=== PATIENT | female | born 1985 | race Caucasian/White ===

== ENCOUNTER 2018-05-18 11:45 | Inpatient (IN) | payer OTHER ==
[~2018-05-18 11:45] MED LIST: CITRIC ACID/SODIUM CITRATE 30 ML UNIT-DOSE CUP PO ONE; ELECTROLYTE-148 SOLN 1,000 ML IV SCH
[2018-05-18] MEDS ORDERED: ELECTROLYTE-148 SOLN 1,000 ML IV SCH (12:15)
[2018-05-18 12:42] VITALS: BMI 36.3
[2018-05-18 13:22] LABS: BASO % 0.3 % (0-2.0); EOS % 1.3 % (0-4.5); HEMATOCRIT 37.5 % (32.4-45.2); HEMOGLOBIN 12.4 GM/dL (10.7-15.3); LYMPH % 20.7 % (8-40); MCH 28.6 pg (25.7-33.7); MCHC 33.1 g/dl (32.0-36.0); MEAN CELL VOLUME 86.5 fl (80-96); MEAN PLT VOLUME 9.1 fl (7.5-11.1); MONO % 6.1 % (3.8-10.2); NEUT % 71.6 % (42.8-82.8); PLATELET COUNT 209 K/MM3 (134-434); RBC 4.34 M/mm3 (3.60-5.2); WHITE BLOOD COUNT 7.5 K/mm3 (4.0-10.0)
[2018-05-18 13:36] LABS: INR 0.92 (0.82-1.09); PROTHROMBIN TIME (PATIENT) 10.4 SEC (9.7-13.0)
[2018-05-18 13:38] LABS: ACTIVATED PTT 28.1 SECONDS (25.2-36.5)
[2018-05-18 13:43] LABS: ANION GAP 11 (8-16); BLOOD UREA NITROGEN 9 mg/dL (7-18); CALCIUM 8.3 mg/dL (8.5-10.1); CHLORIDE 108 mmol/L (98-107); CO2 22 mmol/L (21-32); CREATININE 0.5 mg/dL (0.55-1.02); GLUCOSE,RANDOM 87 mg/dL (74-106); POTASSIUM 4.3 mmol/L (3.5-5.1); SODIUM 141 mmol/L (136-145)
--- NOTE | 2018-05-18 15:16 | HP ---
Past Medical History - Primary Care Physician PCP:: Osvaldo Chavez - Admission Chief Complaint: 40.3 weeks, previous c/s , oligo , request of repeat c/s History of Present Illness: 32 yo f , 40.3 weeks by sono with hx of oligo . AFI3.6 , previous c/s for repeat c/s, cx clp vx -3 mi, fhr cat 1 History Source: Patient Limitations to Obtaining History: No Limitations - Past Medical History ...: 4 ...Para: 2 ...Term: 2 ...: 0 ...Spon : 1 ...Induced : 0 ...Multiple Gestation: 0 ...EDC by Sono: 05/15/18 - Past Surgical History Past Surgical History: Yes: Cholecystectomy, Hx Myomectomy: No Hx Transabdominal Cerclage: No - Smoking History Smoking history: Never smoked Have you smoked in the past 12 months: No Aproximately how many cigarettes per day: 0 - Alcohol/Substance Use Hx Alcohol Use: No - Social History History of Recent Travel: No Home Medications - Allergies Allergies/Adverse Reactions: Allergies Allergy/AdvReac Type Severity Reaction Status Date / Time No Known Allergies Allergy Verified 05/18/18 13:12 - Home Medications Home Medications: Ambulatory Orders Ferrous Sulfate [Feosol] 325 mg PO DAILY 05/18/18 Vitamins (Sjr) - 1 tab PO DAILY 05/18/18 Review of Systems - Review of Systems Constitutional: reports: No Symptoms Eyes: reports: No Symptoms HENT: reports: No Symptoms Neck: reports: No Symptoms Cardiovascular: reports: No Symptoms Respiratory: reports: No Symptoms Gastrointestinal: reports: No Symptoms Genitourinary: reports: No Symptoms Breasts: reports: No Symptoms Reported Musculoskeletal: reports: No Symptoms Integumentary: reports: No Symptoms Neurological: reports: No Symptoms Endocrine: reports: No Symptoms Hematology/Lymphatic: reports: No Symptoms Psychiatric: reports: No Symptoms Physical Exam - Maternity Vital Signs: Vital Signs Temperature 98.1 F 05/18/18 14:00 Pulse Rate 63 05/18/18 14:00 Respiratory Rate 20 05/18/18 14:00 Blood Pressure 131/63 05/18/18 14:00 O2 Sat by Pulse Oximetry (%) Constitutional: Yes: Well Nourished, No Distress, Calm Eyes: Yes: WNL, Conjunctiva Clear, EOM Intact HENT: Yes: WNL, Atraumatic, Normocephalic Neck: Yes: WNL, Supple, Trachea Midline Cardiovascular: Yes: WNL, Regular Rate and Rhythm Breast(s): Yes: WNL - Abdominal Exam/OB Number of Fetuses: Single Presentation: Vertex Intensity: Unaware Monitor Mode: External Heart Rate Location: [facility] Category: I Accelerations: Uniform Decelerations: None - Vaginal Exam/OB Amniotic Membrane Status: Intact Presentation: Vertex/Position Station: -3 - Physical Exam Musculoskeletal: Yes: WNL Extremities: Yes: WNL Edema: Yes Edema: LLE: Trace, RLE: Trace Deep Tendon Reflex Grade: Normal +2 - Labs Lab Results: CBC, BMP 05/18/18 12:20 05/18/18 12:20 Hemorrhage Risk Assessment - Risk Factors Medium Risk Factors: Yes: Prior , uterine surgery,or multiple laparotomies Risk Score: 1 Risk Level: Medium Risk Problem List - Problems (1) Post term over 40 weeks Code(s): O48.0 - POST-TERM (2) Previous section complicating , antepartum condition or complication Code(s): O34.219 - MATERNAL CARE FOR UNSP TYPE SCAR FROM PREVIOUS DEL (3) Oligohydramnios antepartum Code(s): O41.00X0 - OLIGOHYDRAMNIOS, UNSP TRIMESTER, NOT APPLICABLE OR UNSP Qualifiers: Fetus number: single or unspecified fetus Qualified Code(s): O41.00X0 - Oligohydramnios, unspecified trimester, not applicable or unspecified Assessment/Plan admit for repeat c/s, rba discussed
[2018-05-18] MEDS ORDERED: METOCLOPRAMIDE HCL INJECTION 10 MG/2 ML VIAL IVPUSH ONE (16:44)
[2018-05-18] MEDS ORDERED: METOCLOPRAMIDE HCL INJECTION 10 MG/2 ML VIAL ONE (18:18)
[2018-05-18] MEDS ORDERED: diphenhydrAMINE HCL 25 MG CAPSULE (FP) PO PRN (19:20)
[2018-05-18] MEDS ORDERED: IBUPROFEN 800 MG/8 ML IJ IVPB PRN (19:20)
[2018-05-18] MEDS ORDERED: WITCH HAZEL 50% (TUCKS) 40 PAD/JAR PAD TP PRN (19:20)
[2018-05-18] MEDS ORDERED: METHYLERGONOVINE MALEATE 0.2 MG/1 ML AMP IM PRN (19:20)
[2018-05-18] MEDS ORDERED: oxyCODONE HCL 5 MG TABLET PO PRN ×2 (19:20)
[2018-05-18] MEDS ORDERED: BENZOCAINE 28 GM HEMORRHOIDAL OINTMENT PR PRN (19:20)
[2018-05-18] MEDS ORDERED: BENZOCAINE 20% 57 GM BOTTLE TP PRN (19:20)
[2018-05-18] MEDS ORDERED: morphine SULFATE/Preservative Free 0.5 MG/ML (1cc Syringe) ONE (19:26)
[2018-05-18] MEDS ORDERED: PHENYLEPHRINE HCL 10 MG/1 ML SINGLE DOSE VIAL ONE (19:28)
[2018-05-18] MEDS ORDERED: OXYTOCIN 20 UNITS in 0.9% NS 20 UNIT/1,000 ML INFUS.BAG IV SCH (19:30)
[2018-05-18] MEDS ORDERED: DEXTROSE 5%-LACTATED RINGERS 1,000 ML IV SCH (19:30)
[2018-05-18] MEDS ORDERED: BUPIVACAINE 0.75% IN DEXTROSE/PF 2ML AMPULE NR ONE ×2 (19:33→19:50)
[2018-05-18] MEDS ORDERED: ONDANSETRON 4 MG/2 ML VIAL IVPUSH PRN (20:19)
[2018-05-18] MEDS ORDERED: SUCCINYLCHOLINE CHLORIDE 200 MG/10 ML VIAL ONE (20:26)
[2018-05-18] MEDS ORDERED: KETOROLAC TROMETHAMINE 30 MG/1 ML VIAL ONE (20:31)
[2018-05-18] MEDS ORDERED: OXYTOCIN 10 UNITS/ML VIAL ONE (20:31)
[2018-05-19] MEDS ORDERED: DEXTROSE 5%-WATER - 50 ML IVPB ONE ×2 (01:00→09:49)
[2018-05-19] MEDS ORDERED: ceFAZolin SODIUM 1 GM VIAL ONE ×2 (01:00→09:50)
[2018-05-19] MEDS: CEFAZOLIN 1 GM in DEXTROSE 5%-WATER - 50 ML IVPB SCH ×2 (01:26→09:53)
[2018-05-19 07:03] LABS: BASO % 0.3 % (0-2.0); EOS % 0.3 % (0-4.5); HEMATOCRIT 36.6 % (32.4-45.2); HEMOGLOBIN 12.3 GM/dL (10.7-15.3); MCH 29.2 pg (25.7-33.7); MCHC 33.6 g/dl (32.0-36.0); MEAN CELL VOLUME 86.7 fl (80-96); MEAN PLT VOLUME 8.7 fl (7.5-11.1); MONO % 6.1 % (3.8-10.2); NEUT % 75.3 % (42.8-82.8); PLATELET COUNT 202 K/MM3 (134-434); RBC 4.22 M/mm3 (3.60-5.2); RDW 16.2 % (11.6-15.6); WHITE BLOOD COUNT 10.9 K/mm3 (4.0-10.0)
[2018-05-19] MEDS: ENOXAPARIN NA (PORCINE) 40 MG/0.4 ML DISP.SYRIN SQ SCH (09:53)
[2018-05-19] MEDS ORDERED: BISACODYL 10 MG SUPP.RECT RC PRN (19:20)
[2018-05-19] MEDS: IBUPROFEN 600 MG TABLET (FP) PO PRN (19:36)
[2018-05-19] MEDS: ACETAMINOPHEN 325 MG TABLET (FP) PO PRN (19:37)
--- NOTE | 2018-05-19 19:49 | PN ---
Progress Note, Physician Chief Complaint: Pt ambulating and voiding, pain controlled, no anesthesia complaints. - Current Medication List Current Medications: Active Medications Acetaminophen (Tylenol -) 650 mg PO Q4H PRN PRN Reason: PAIN 4 - 6; IF OXY NT WRK Last Admin: 05/19/18 19:37 Dose: 650 mg Benzocaine (Americaine 20% [place] -) 1 spray TP PRN PRN PRN Reason: Pain - Topical Benzocaine (Americaine Ointment -) 1 applic [place] PRN PRN PRN Reason: Pain - Topical Bisacodyl (Dulcolax Suppository -) 10 mg RC PRN PRN PRN Reason: CONSTIPATION Diphenhydramine HCl (Benadryl -) 25 mg PO Q8H PRN PRN Reason: FOR ITCHING Diphenhydramine HCl (Benadryl Injection -) 12.5 mg IVPUSH Q4H PRN PRN Reason: FOR ITCHING Diphtheria/Tetanus/Acell Pertussis (Boostrix -) 0.5 ml IM .ONCE ONE Stop: 05/20/18 10:01 Enoxaparin Sodium (Lovenox -) 40 mg SQ DAILY YAMIL Last Admin: 05/19/18 09:53 Dose: 40 mg Ibuprofen (Motrin -) 600 mg PO Q4H PRN PRN Reason: PAIN LEVEL 1 - 3 Last Admin: 05/19/18 19:36 Dose: 600 mg Ibuprofen (Caldolor Injection -) 800 mg IVPB Q6H PRN PRN Reason: PAIN 6-10 if PO not effective. Methylergonovine Maleate (Methergine Injection -) 0.2 mg IM Q4H PRN PRN Reason: EXCESSIVE BLEEDING Ondansetron HCl (Zofran Injection) 4 mg IVPUSH Q6H PRN PRN Reason: NAUSEA AND/OR VOMITING Oxycodone HCl (Roxicodone -) 5 mg PO Q4H PRN PRN Reason: PAIN 4 - 6; IF TYL NT WRK Oxycodone HCl (Roxicodone -) 10 mg PO Q4H PRN PRN Reason: PAIN LEVEL 7 - 10 Senna/Docusate Sodium (Pericolace -) 2 tablet PO HS PRN PRN Reason: CONSTIPATION Simethicone (Mylicon -) 80 mg PO Q4H PRN PRN Reason: GAS Witch Lidia/Glycerin (Tucks Pads -) 1 pad TP PRN PRN PRN Reason: Pain - Topical - Objective Vital Signs: Vital Signs Temperature 98.8 F 05/19/18 18:00 Pulse Rate 90 05/19/18 18:00 Respiratory Rate 20 05/19/18 18:00 Blood Pressure 113/74 05/19/18 18:00 O2 Sat by Pulse Oximetry (%) 100 05/18/18 22:00 Constitutional: Yes: Well Nourished, No Distress, Calm Musculoskeletal: Yes: WNL Neurological: Yes: WNL, Alert, Oriented ...Motor Strength: WNL Labs: CBC, BMP 05/19/18 06:30 05/18/18 12:20 INR, PTT INR 0.92 (0.82-1.09) 05/18/18 12:20 Assessment/Plan POD#1 s/p Repeat under spinal with duramorph. Doing well. D/C from anesthesia care.
--- NOTE | 2018-05-20 07:46 | PN ---
Progress Note (short form) - Note Progress Note: 05/19/18 10 am pod 1 doing well,ambulating afebrile , VS stable CBC, BMP 05/19/18 06:30 05/18/18 12:20 abdomen soft, no distension, no cva incision dry, clean no calf tenderness plan ambulate, advance diet , pain management Problem List - Problems (1) Post term over 40 weeks Code(s): O48.0 - POST-TERM (2) Previous section complicating , antepartum condition or complication Code(s): O34.219 - MATERNAL CARE FOR UNSP TYPE SCAR FROM PREVIOUS DEL (3) Oligohydramnios antepartum Code(s): O41.00X0 - OLIGOHYDRAMNIOS, UNSP TRIMESTER, NOT APPLICABLE OR UNSP Qualifiers: Fetus number: single or unspecified fetus Qualified Code(s): O41.00X0 - Oligohydramnios, unspecified trimester, not applicable or unspecified
--- NOTE | 2018-05-20 07:48 | PN ---
Progress Note (short form) - Note Progress Note: pod 2 doing well, passing gas CBC, BMP 05/19/18 06:30 05/18/18 12:20 Last Vital Signs Temp Pulse Resp BP Pulse Ox 98.2 F 90 20 121/68 100 05/19/18 22:00 05/19/18 22:00 05/19/18 22:00 05/19/18 22:00 05/18/18 22:00 abdomen soft, BS present, incision dry, clean no calf tenderness lochia mild plan cbc in am ambulate Problem List - Problems (1) Post term over 40 weeks Code(s): O48.0 - POST-TERM (2) Previous section complicating , antepartum condition or complication Code(s): O34.219 - MATERNAL CARE FOR UNSP TYPE SCAR FROM PREVIOUS DEL (3) Oligohydramnios antepartum Code(s): O41.00X0 - OLIGOHYDRAMNIOS, UNSP TRIMESTER, NOT APPLICABLE OR UNSP Qualifiers: Fetus number: single or unspecified fetus Qualified Code(s): O41.00X0 - Oligohydramnios, unspecified trimester, not applicable or unspecified
[2018-05-20] MEDS: ACETAMINOPHEN 325 MG TABLET (FP) PO PRN ×2 (08:33→20:35)
[2018-05-20] MEDS: SIMETHICONE 80 MG TAB.CHEW (FP) PO PRN (08:36)
[2018-05-20] MEDS ORDERED: DIPHTH,PERTUSS(ACELL),TET 0.5 ML DISP.SYRIN IM ONE (10:00)
[2018-05-20] MEDS: ENOXAPARIN NA (PORCINE) 40 MG/0.4 ML DISP.SYRIN SQ SCH (10:06)
[2018-05-20] MEDS: IBUPROFEN 600 MG TABLET (FP) PO PRN (20:34)
[2018-05-20] MEDS ORDERED: SENNOSIDES/DOCUSATE COMBO (SENNA PLUS) TABLET (UD) PO PRN (22:00)
[2018-05-20 22:12] VITALS: BP 129/60; PULSE 87; TEMP 98.7
--- NOTE | 2018-05-21 06:36 | DS ---
Physical Exam-[facility] Vital Signs: Vital Signs Temperature 98.7 F 05/20/18 22:00 Pulse Rate 87 05/20/18 22:00 Respiratory Rate 20 05/20/18 22:00 Blood Pressure 129/60 05/20/18 22:00 O2 Sat by Pulse Oximetry (%) 100 05/18/18 22:00 Constitutional: Yes: Well Nourished, No Distress, Calm Eyes: Yes: WNL, Conjunctiva Clear, EOM Intact HENT: Yes: WNL, Atraumatic, Normocephalic Neck: Yes: WNL, Supple, Trachea Midline Cardiovascular: Yes: WNL, Regular Rate and Rhythm Respiratory: Yes: WNL, Regular, CTA Bilaterally Gastrointestinal: Yes: WNL ...Rectal Exam: Yes: WNL Renal/: Yes: WNL ....Post : Yes: Uterus firm, Uterus non-tender, Slight lochia rubra Breast(s): Yes: WNL Musculoskeletal: Yes: WNL Extremities: Yes: WNL Edema: No Integumentary: Yes: WNL Wound/Incision: Yes: Clean/Dry, Well Approximated, [place] Intact Neurological: Yes: WNL, Alert, Oriented ...Motor Strength: WNL Psychiatric: Yes: WNL, Alert, Oriented Labs: CBC, BMP 05/19/18 06:30 05/18/18 12:20 Delivery - Delivery Section: Repeat, Low Flap Transverse (no complication) Type of Anesthesia: Spinal Episiotomy/Laceration: None EBL (cc): 500 Delivery, Single - Stages of Labor Date of Delivery: 05/18/18 Time of Delivery: 20:06 Time Placenta Delivered: 20:07 Placenta: Yes: Manual Removal - Condition of Infant 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 Present: Yes Name: Sandie Rawls Infant Gender: Male Weight: 7 lb 6 oz Position: Right, OP Total Hours ROM (Hrs/Mins): 1min - 1 Minute Total Score: 9 5 Minutes Total Score: 9 - [place] Feeding Plan Initial Plan: Exclusive throughout hospitalization Discharge Summary Reason For Visit: Current Active Problems Oligohydramnios antepartum (Acute) Post term over 40 weeks (Acute) Previous section complicating , antepartum condition or complication (Acute) Other Procedures: repeat LST c/s Hospital Course: no complicatiom Condition: Good - Instructions Diet, Activity, Other Instructions: regular diet, no intercourse, follow up [facility] car 1 week, if fever, pain, heavy vaginal bleeding call MD Referrals: Osvaldo Chavez MD [Staff Physician] - Disposition: HOME - Home Medications Comprehensive Discharge Medication List: Ambulatory Orders Ferrous Sulfate [Feosol] 325 mg PO DAILY 05/18/18 Vitamins (Sjr) - 1 tab PO DAILY 05/18/18 Ibuprofen [Motrin -] 600 mg PO QID #28 tablet 05/20/18
[2018-05-21 07:45] LABS: BASO % 0.3 % (0-2.0); EOS % 4.7 % (0-4.5); HEMOGLOBIN 11.9 GM/dL (10.7-15.3); LYMPH % 21.2 % (8-40); MCH 29.1 pg (25.7-33.7); MCHC 33.2 g/dl (32.0-36.0); MEAN CELL VOLUME 87.6 fl (80-96); MEAN PLT VOLUME 8.3 fl (7.5-11.1); NEUT % 67.8 % (42.8-82.8); PLATELET COUNT 242 K/MM3 (134-434); RBC 4.11 M/mm3 (3.60-5.2); RDW 16.4 % (11.6-15.6); WHITE BLOOD COUNT 9.7 K/mm3 (4.0-10.0)
[2018-05-21] MEDS: SIMETHICONE 80 MG TAB.CHEW (FP) PO PRN (08:20)
[2018-05-21] MEDS: IBUPROFEN 600 MG TABLET (FP) PO PRN (08:20)
[2018-05-21] MEDS: ACETAMINOPHEN 325 MG TABLET (FP) PO PRN (08:21)
[2018-05-21] MEDS: ENOXAPARIN NA (PORCINE) 40 MG/0.4 ML DISP.SYRIN SQ SCH (09:30)
== END 2018-05-21 16:30 | disposition home or self-care (01) | DRG 540 ==
LOC: JLDR 11:45 → J3W 22:33
PROVIDERS: ADMIT Obstetrics & Gynecology; ATTEND Obstetrics & Gynecology
PROC: 10D00Z1 Extraction of Products of Conception, Low, Open Approach (ICD-10-PCS; principal; 2018-05-18)
DX: O34.211 Maternal care for low transverse scar from previous cesarean delivery (principal); N85.8 Other specified noninflammatory disorders of uterus; O41.03X0 Oligohydramnios, third trimester, not applicable or unspecified; O48.0 Post-term pregnancy; Z3A.40 40 weeks gestation of pregnancy; Z37.0 Single live birth
CPT/HCPCS: 36415; 80048; 85025; 85610; 85730; 86593; 86850; 86900; 86901; 90715